=== PATIENT | female | born 1985 | race Caucasian/White ===

== ENCOUNTER 2017-04-28 17:46 | Emergency (ER) | payer BC ==
[~2017-04-28] VITALS: Ht 177.8 cm; Wt 129.3 kg
[2017-04-28 18:55] VITALS: Ht 177.8 cm; Wt 129.3 kg
[2017-04-28 19:46] VITALS: BP 138/88
== END 2017-04-28 19:46 | disposition left against medical advice (07) ==
LOC: ED 17:46
DX: H47.10 Unspecified papilledema (principal); J45.909 Unspecified asthma, uncomplicated; R51 Headache